=== PATIENT | female | born 1970 | race Caucasian/White ===

== ENCOUNTER 2017-09-18 09:10 | Emergency (ER) | payer OTHER ==
[2017-09-18] MEDS: KETOROLAC 60 MG INJ IM (10:43)
== END 2017-09-18 12:10 | disposition home or self-care (01) ==
LOC: FTE 09:10
DX: R07.81 Pleurodynia (principal); I10 Essential (primary) hypertension
CPT/HCPCS: 71100; 96372; 99284-25

== ENCOUNTER 2018-11-11 22:20 | Emergency (ER) | payer OTHER ==
[2018-11-12] MEDS: IBUPROFEN 600 MG TAB PO (00:32)
[2018-11-12] MEDS: HYDROCODONE/APAP (5/325) TAB PO (00:33)
== END 2018-11-12 02:00 | disposition home or self-care (01) ==
LOC: FTE 22:20
DX: S82.831A Other fracture of upper and lower end of right fibula, initial encounter for closed fracture (principal); I10 Essential (primary) hypertension; E11.9 Type 2 diabetes mellitus without complications; W18.30XA Fall on same level, unspecified, initial encounter; Y92.9 Unspecified place or not applicable
CPT/HCPCS: 29515; 73610-RT; 73630; 99283-25